=== PATIENT | female | born 1935 | race Caucasian/White ===

== ENCOUNTER 2020-05-26 13:16 | Emergency (ER) | payer MEDICARE, BC ==
[2020-05-26] MEDS ORDERED: Sodium Chloride 0.9% 10 ML Syringe FLUSH PRN (13:20)
[2020-05-26 13:37] VITALS: BP 130/54; PULSE 60
--- NOTE | 2020-05-26 13:43 | EDM.PDOC ---
ED HPI GENERAL MEDICAL PROBLEM - General Chief Complaint: Neuro Symptoms/Deficits Stated Complaint: [facility] Time Seen by Provider: 05/26/20 13:20 Source of Information: Reports: Patient, EMS, Family History Limitations: Reports: No Limitations - History of Present Illness INITIAL COMMENTS - FREE TEXT/NARRATIVE: The patient presents by [facility] for a stroke. The patient was at home with her son and she started having trouble getting her words. This was at 11:30am. EMS was called. She has no other neurologic deficits such as numbness or weakness. She has no headache, fever, chills, cough, congestion, runny nose, chest pain, abdominal pain, nausea, vomiting or diarrhea. She has a history of hypertension and hyperlipidemia. Onset: Sudden Duration: Hour(s): (11:30 symptoms started) Severity: Moderate Improves with: Reports: None Worsens with: Reports: None Associated Symptoms: Reports: No Other Symptoms - Related Data Allergies Allergy/AdvReac Type Severity Reaction Status Date / Time lisinopril AdvReac Cough Verified 05/26/20 13:37 Home Meds: Home Meds Acetaminophen [Tylenol] 650 mg PO Q4H PRN 09/18/15 [History] Albuterol [Proair HFA] 2 puff INH Q4HR PRN 09/18/15 [History] Hydrochlorothiazide 12.5 mg PO DAILY 09/18/15 [History] Ubidecarenone [Co Q-10] 100 mg PO DAILY 09/19/15 [History] amLODIPine [Norvasc] 10 mg PO DAILY 09/19/15 [History] Multivitamins,Therapeutic [Thera] 1 each PO WITHBREAKFAST tablet 09/20/15 [Rx] B2/Vits A,C,E/Lut/Zeaxanth/Min [Icaps] 1 each PO DAILY 05/26/20 [History] Cartilage/Collagen/Bor/Hyalur [Joint Health Tablet] 1 each PO DAILY 05/26/20 [History] Fluticasone Propionate [Flovent] 1 puff IH DAILY 05/26/20 [History] Loratadine [Claritin] 10 mg PO DAILY 05/26/20 [History] Omeprazole 20 mg PO DAILY 05/26/20 [History] Triamcinolone Acetonide [Triamcinolone Acetonide 0.1% Oint] 11 applic TOP BID 05/26/20 [History] atorvaSTATin Calcium [Atorvastatin Calcium] 40 mg PO DAILY 05/26/20 [History] Past Medical History HEENT History: Reports: Impaired Vision Other HEENT History: L cerumen impaction Cardiovascular History: Reports: High Cholesterol, Hypertension Respiratory History: Reports: Asthma Gastrointestinal History: Reports: GERD Musculoskeletal History: Reports: Osteoarthritis Dermatologic History: Reports: Eczema - Past Surgical History HEENT Surgical History: Reports: Cataract Surgery GI Surgical History: Reports: Colonoscopy Social & Family History - Family History Cardiac: Reports: Hypertension, [place] Respiratory: Reports: COPD Musculoskeletal: Reports: Osteoarthritis Endocrine/Metabolic: Reports: Diabetes, type II - Caffeine Use Caffeine Use: Reports: Coffee - Living Situation & Occupation Living situation: Reports: Occupation: Retired ED ROS GENERAL - Review of Systems Review Of Systems: See Below Constitutional: Reports: No Symptoms HEENT: Reports: No Symptoms Respiratory: Reports: No Symptoms Cardiovascular: Reports: No Symptoms Endocrine: Reports: No Symptoms GI/Abdominal: Reports: No Symptoms : Reports: No Symptoms Musculoskeletal: Reports: No Symptoms ED EXAM, NEURO - Physical Exam Exam: See Below Exam Limited By: No Limitations General Appearance: Alert, No Apparent Distress Ears: Normal External Exam Nose: Normal Inspection Head Exam: Atraumatic, Normocephalic Neck: Normal Inspection Respiratory/Chest: No Respiratory Distress, Lungs Clear, Normal Breath Sounds Cardiovascular: Regular Rate, Rhythm, No Edema, No Murmur GI/Abdominal: Soft, Non-Tender, No Organomegaly, No Mass Neurological: Alert, No Motor/Sensory Deficits, Oriented x 3, Other (The patient has trouble getting her words and her sentences do not make sense.) #1 Interpretation EKG Date: 05/26/20 Time: 13:39 Rhythm: NSR Rate (Beats/Min): 59 [employer]: Normal P-Wave: Present QRS: Normal ST-T: Normal QT: Normal Course - Vital Signs Last Recorded V/S: Last Vital Signs Temp 96.9 F 05/26/20 13:32 Pulse 60 05/26/20 13:32 Resp 18 05/26/20 13:32 BP 130/54 L 05/26/20 13:32 Pulse Ox 99 05/26/20 13:32 - Orders/Labs/Meds Orders: Active Orders 24 hr Category Date Time Status Cardiac Monitoring [RC] . DIRECTED Care 05/26/20 13:20 Active EKG Documentation Completion [RC] STAT Care 05/26/20 13:22 Active Peripheral IV Care [RC] . DIRECTED Care 05/26/20 13:22 Active COMPREHENSIVE METABOLIC PN,CMP [CHEM] Stat Lab 05/26/20 13:40 Received CORONAVIRUS COVID-19 RENE [MOLEC] Stat Lab 05/26/20 13:46 Received INR,PT,PROTHROMBIN TIME [COAG] Stat Lab 05/26/20 13:40 Received PTT,PARTIAL THROMBOPLSTIN TIME [COAG] Stat Lab 05/26/20 13:40 Received Sodium Chloride 0.9% [Saline Flush] Med 05/26/20 13:20 Active 10 ml FLUSH ASDIRECTED PRN Peripheral IV Insertion Adult [OM.PC] Stat Oth 05/26/20 13:20 Ordered Medication Orders Sodium Chloride (Saline Flush) 10 ml FLUSH ASDIRECTED PRN PRN Reason: Keep Vein Open Last Admin: 05/26/20 13:56 Dose: 10 ml Documented by: HUBERT Labs: Laboratory Tests 05/26/20 Range/Units 13:40 WBC 7.08 (3.98-10.04) K/mm3 RBC 3.83 L (3.98-5.22) M/mm3 Hgb 11.5 (11.2-15.7) gm/dl Hct 35.7 (34.1-44.9) % MCV 93.2 (79.4-94.8) fl MCH 30.0 (25.6-32.2) pg MCHC 32.2 (32.2-35.5) g/dl RDW Std Deviation 43.3 (36.4-46.3) fL Plt Count 270 D (182-369) K/mm3 MPV 10.1 (9.4-12.3) fl Neut % (Auto) 71.1 (34.0-71.1) % Lymph % (Auto) 21.5 (19.3-51.7) % Hand % (Auto) 6.9 (4.7-12.5) % Eos % (Auto) 0.4 L (0.7-5.8) Baso % (Auto) 0.1 (0.1-1.2) % Neut # (Auto) 5.03 (1.56-6.13) K/mm3 Lymph # (Auto) 1.52 (1.18-3.74) K/mm3 Hand # (Auto) 0.49 H (0.24-0.36) K/mm3 Eos # (Auto) 0.03 L (0.04-0.36) K/mm3 Baso # (Auto) 0.01 (0.01-0.08) K/mm3 Meds: Medications Generic Name Dose Route Start Last Admin Trade Name Freq PRN Reason Stop Dose Admin Sodium Chloride 10 ml 05/26/20 13:20 05/26/20 13:56 Saline Flush FLUSH 10 ml ASDIRECTED PRN Administration Keep Vein Open - Re-Assessments/Exams Free Text/Narrative Re-Assessment/Exam: 05/26/20 13:43 A stroke alert was called. The patient's last time known well was 11:30am. I ordered an IV saline lock, CT of her head, EKG, and labs. Her CT shows large area of decreased attenuation in the right occipital lobe has appearance consistent with acute ischemia. No hemorrhage identified. Stable diffuse chronic white matter ischemic changes when compared with 04/29/2018. 05/26/20 14:06 I called [facility] in [place] and talked with Dr Loya the neurologist application specialist and he did not want me to give her thrombolytics. We are seeing changes on her CT and this makes her at higher risk for a head bleed. I explained this to the patient and her son. Dr Loya did accept the patient. 05/26/20 14:09 Her CBC looks good. Departure - Departure Time of Disposition: 14:10 Disposition: DC/Tfer to Acute Hospital 02 Condition: Serious Clinical Impression: Cerebrovascular accident (CVA) Qualifiers: CVA mechanism: unspecified Qualified Code(s): I63.9 - Cerebral infarction, unspecified - Discharge Information Forms: ED Department Discharge Sepsis Event Note (ED) - Evaluation Sepsis Screening Result: No Definite Risk - Focused Exam Vital Signs: Vital Signs Temp Pulse Resp BP Pulse Ox 05/26/20 13:32 96.9 F 60 18 130/54 L 99 - My Orders Last 24 Hours: My Active Orders 05/26/20 13:20 Cardiac Monitoring [RC] . DIRECTED Sodium Chloride 0.9% [Saline Flush] 10 ml FLUSH ASDIRECTED PRN Peripheral IV Insertion Adult [OM.PC] Stat 05/26/20 13:22 EKG Documentation Completion [RC] STAT Peripheral IV Care [RC] . DIRECTED 05/26/20 13:40 COMPREHENSIVE METABOLIC PN,CMP [CHEM] Stat INR,PT,PROTHROMBIN TIME [COAG] Stat PTT,PARTIAL THROMBOPLSTIN TIME [COAG] Stat 05/26/20 13:46 CORONAVIRUS COVID-19 RENE [MOLEC] Stat - Assessment/Plan Last 24 Hours: My Active Orders 05/26/20 13:20 Cardiac Monitoring [RC] . DIRECTED Sodium Chloride 0.9% [Saline Flush] 10 ml FLUSH ASDIRECTED PRN Peripheral IV Insertion Adult [OM.PC] Stat 05/26/20 13:22 EKG Documentation Completion [RC] STAT Peripheral IV Care [RC] . DIRECTED 05/26/20 13:40 COMPREHENSIVE METABOLIC PN,CMP [CHEM] Stat INR,PT,PROTHROMBIN TIME [COAG] Stat PTT,PARTIAL THROMBOPLSTIN TIME [COAG] Stat 05/26/20 13:46 CORONAVIRUS COVID-19 RENE [MOLEC] Stat
--- NOTE | 2020-05-26 13:53 | CT ---
PROCEDURE INFORMATION: Exam: CT Head Without Contrast Exam date and time: 05/26/2020 1:23 PM Age: 85 years old Clinical indication: Speech disturbance; Patient HX: CVA, cannot talk TECHNIQUE: Imaging protocol: Computed tomography of the head without contrast. Radiation optimization: All CT scans at this facility use at least one of these dose optimization techniques: automated exposure control; mA and/or kV adjustment per patient size (includes targeted exams where dose is matched to clinical indication); or iterative reconstruction. Other technique: STROKE PROTOCOL was implemented. COMPARISON: CT Head wo Cont 04/29/2018 12:50 PM FINDINGS: Brain: Large area of decreased attenuation in the right occipital lobe with effacement of the sulci and gyri. This involves an area measuring approximately 6.4 by by 2.8 cm in AP, transverse, and craniocaudad dimension and extends to the midline. No midline shift. Stable low-density changes in the periventricular white matter of both cerebral consistent with chronic ischemic change. No hemorrhage identified. Mild diffuse parenchymal atrophy. Cerebral ventricles: Stable atrophy related in symmetric ventricular enlargement. Bones/joints: Unremarkable. No acute fracture. Paranasal sinuses: Visualized sinuses are unremarkable. No fluid levels. Mastoid air cells: Visualized mastoid air cells are well aerated. Soft tissues: Unremarkable. Other findings: IMPRESSION: 1. Large area of decreased attenuation in the right occipital lobe has appearance consistent with acute ischemia. No hemorrhage identified. 2. Stable diffuse chronic white matter ischemic changes when compared with 04/29/2018 ASSESSMENT: ASPECTS ([place] Stroke Program Early CT Score) is 10. THIS REPORT CONTAINS FINDINGS THAT MAY BE CRITICAL TO PATIENT CARE. The findings were verbally communicated via telephone conference with ISI COOMBS at 2:37 PM CUSTOMER ADVISOR SPECIALIST on 05/26/2020. The findings were acknowledged and understood. Into Thank you for allowing us to participate in the care of your patient. Dictated and Authenticated by: Mireille Cruz MD 05/26/2020 2:45 PM Central Time ([place] & [place]) [facility]
== END 2020-05-26 14:38 ==
LOC: JD.ED 13:16
DX: I63.9 Cerebral infarction, unspecified (principal); I10 Essential (primary) hypertension; E78.00 Pure hypercholesterolemia, unspecified; J45.909 Unspecified asthma, uncomplicated; K21.9 Gastro-esophageal reflux disease without esophagitis; Z88.8 Allergy status to other drugs, medicaments and biological substances; Z79.899 Other long term (current) drug therapy; Z20.828 Contact with and (suspected) exposure to other viral communicable diseases
CPT/HCPCS: 36415; 70450; 80053; 82962; 85025; 85610; 85730; 93005; 99285; U0002; 93010; 99284

== ENCOUNTER 2020-09-07 07:33 | Emergency (ER) | payer MEDICARE, BC ==
[2020-09-07 07:41] VITALS: BP 144/70; PULSE 96
[2020-09-07] MEDS ORDERED: Sodium Chloride 0.9% 10 ML Syringe FLUSH PRN (08:01)
[2020-09-07] MEDS ORDERED: Sodium Chloride 0.9% 1,000 ML IV SCH (08:15)
--- NOTE | 2020-09-07 08:18 | EDM.PDOC ---
ED HPI GENERAL MEDICAL PROBLEM - General Chief Complaint: General Stated Complaint: [facility] Time Seen by Provider: 09/07/20 07:52 Source of Information: Reports: Patient, EMS History Limitations: Reports: No Limitations - History of Present Illness INITIAL COMMENTS - FREE TEXT/NARRATIVE: The patient presents by [facility] for generalized weakness. She said w hen she went to bed last night she was feeling fine. Early this morning she got up to use the bathroom and was okay but this morning at 6am she was so weak she could not get out of bed. She has a slight cough but no fever, chills, chest pain, shortness of breath, abdominal pain, nausea, vomiting or dysuria. She has a history of a CVA in May. She denies having any deficits from it. She quesada s no heart problems. Onset: Gradual Duration: Hour(s): Severity: Moderate Improves with: Reports: None Worsens with: Reports: None Associated Symptoms: Reports: No Other Symptoms - Related Data Allergies Allergy/AdvReac Type Severity Reaction Status Date / Time lisinopril AdvReac Cough Verified 09/07/20 07:41 Home Meds: Home Meds Acetaminophen [Tylenol] 650 mg PO Q4H PRN 09/18/15 [History] Albuterol [Proair HFA] 2 puff INH Q4HR PRN 09/18/15 [History] Ubidecarenone [Co Q-10] 100 mg PO DAILY 09/19/15 [History] amLODIPine [Norvasc] 10 mg PO DAILY 09/19/15 [History] Multivitamins,Therapeutic [Thera] 1 each PO WITHBREAKFAST tablet 09/20/15 [Rx] B2/Vits A,C,E/Lut/Zeaxanth/Min [Icaps] 1 each PO DAILY 05/26/20 [History] Cartilage/Collagen/Bor/Hyalur [Joint Health Tablet] 1 each PO DAILY 05/26/20 [History] Fluticasone Propionate [Flovent] 1 puff IH DAILY 05/26/20 [History] Loratadine [Claritin] 10 mg PO DAILY 05/26/20 [History] Omeprazole 20 mg PO DAILY 05/26/20 [History] Triamcinolone Acetonide [Triamcinolone Acetonide 0.1% Oint] 11 applic TOP BID 05/26/20 [History] atorvaSTATin Calcium [Atorvastatin Calcium] 40 mg PO DAILY 05/26/20 [History] Apixaban [Eliquis] 5 mg PO BID 09/07/20 [History] Metoprolol Succinate 12.5 mg PO DAILY 09/07/20 [History] Past Medical History HEENT History: Reports: Impaired Vision Other HEENT History: L cerumen impaction Cardiovascular History: Reports: High Cholesterol, Hypertension Respiratory History: Reports: Asthma Gastrointestinal History: Reports: GERD COPY HOLDER History: Reports: Musculoskeletal History: Reports: Osteoarthritis Neurological History: Reports: CVA, Other (See Below) Other Neuro History: Stroke 05/26/2020. Endocrine/Metabolic History: Reports: Vitamin D Deficiency Hematologic History: Reports: Anemia Dermatologic History: Reports: Eczema - Past Surgical History HEENT Surgical History: Reports: Cataract Surgery GI Surgical History: Reports: Colonoscopy Social & Family History - Family History Cardiac: Reports: Hypertension, [place] Respiratory: Reports: COPD Musculoskeletal: Reports: Osteoarthritis Endocrine/Metabolic: Reports: Diabetes, type II - Tobacco Use Tobacco Use Status *Q: Never Tobacco User - Caffeine Use Caffeine Use: Reports: None - Living Situation & Occupation Living situation: Reports: Occupation: Retired ED ROS GENERAL - Review of Systems Review Of Systems: See Below Constitutional: Reports: Malaise, Weakness, Fatigue. Denies: Fever, Chills HEENT: Reports: No Symptoms Respiratory: Reports: No Symptoms Cardiovascular: Reports: No Symptoms Endocrine: Reports: No Symptoms GI/Abdominal: Reports: No Symptoms : Reports: No Symptoms Musculoskeletal: Reports: No Symptoms ED EXAM, GENERAL - Physical Exam Exam: See Below Exam Limited By: No Limitations General Appearance: Alert, No Apparent Distress Ears: Normal External Exam Nose: Normal Inspection Head: Atraumatic, Normocephalic Neck: Normal Inspection Respiratory/Chest: No Respiratory Distress, Lungs Clear, Normal Breath Sounds Cardiovascular: Regular Rate, Rhythm, No Edema, No Murmur GI/Abdominal: Soft, Non-Tender, No Organomegaly, No Mass Extremities: Normal Inspection Neurological: Alert, Oriented, No Motor/Sensory Deficits #1 Interpretation EKG Date: 09/07/20 Time: 07:59 Rhythm: NSR Rate (Beats/Min): 65 [place]: Normal P-Wave: Present QRS: Normal ST-T: Normal QT: Normal Course - Vital Signs Last Recorded V/S: Last Vital Signs Temp 97.4 F 09/07/20 07:38 Pulse 96 09/07/20 07:38 Resp 16 09/07/20 07:38 BP 144/70 H 09/07/20 07:38 Pulse Ox 98 09/07/20 07:38 - Orders/Labs/Meds Orders: Active Orders 24 hr Category Date Time Status Cardiac Monitoring [RC] . DIRECTED Care 09/07/20 08:01 Active EKG Documentation Completion [RC] STAT Care 09/07/20 08:02 Active Peripheral IV Care [RC] . DIRECTED Care 09/07/20 08:02 Active Sodium Chloride 0.9% [Normal Saline] 1,000 ml Med 09/07/20 08:15 Active IV .BOLUS Sodium Chloride 0.9% [Saline Flush] Med 09/07/20 08:01 Active 10 ml FLUSH ASDIRECTED PRN Peripheral IV Insertion Adult [OM.PC] Stat Oth 09/07/20 08:01 Ordered Medication Orders Sodium Chloride (Normal Saline) 1,000 mls @ 1,000 mls/hr IV .BOLUS ZAINAB Last Admin: 09/07/20 08:19 Dose: 1,000 mls/hr Documented by: WALTER Sodium Chloride (Saline Flush) 10 ml FLUSH ASDIRECTED PRN PRN Reason: Keep Vein Open Last Admin: 09/07/20 08:19 Dose: 10 ml Documented by: WALTER Labs: Laboratory Tests 09/07/20 09/07/20 09/07/20 Range/Units 07:50 07:50 08:08 WBC 7.90 (3.98-10.04) K/mm3 RBC 3.60 L (3.98-5.22) M/mm3 Hgb 10.2 L (11.2-15.7) gm/dl Hct 32.8 L (34.1-44.9) % MCV 91.1 (79.4-94.8) fl MCH 28.3 (25.6-32.2) pg MCHC 31.1 L (32.2-35.5) g/dl RDW Std Deviation 46.0 (36.4-46.3) fL Plt Count 406 H D (182-369) K/mm3 MPV 10.3 (9.4-12.3) fl Neut % (Auto) 75.6 H (34.0-71.1) % Lymph % (Auto) 15.4 L (19.3-51.7) % [place] % (Auto) 7.1 (4.7-12.5) % Eos % (Auto) 1.0 (0.7-5.8) Baso % (Auto) 0.6 (0.1-1.2) % Neut # (Auto) 5.97 (1.56-6.13) K/mm3 Lymph # (Auto) 1.22 (1.18-3.74) K/mm3 [place] # (Auto) 0.56 H (0.24-0.36) K/mm3 Eos # (Auto) 0.08 (0.04-0.36) K/mm3 Baso # (Auto) 0.05 (0.01-0.08) K/mm3 Sodium 143 (136-145) mEq/L Potassium 3.8 (3.5-5.1) mEq/L Chloride 105 (98-107) mEq/L Carbon Dioxide 25 (21-32) mEq/L Anion Gap 16.8 H (5-15) BUN 13 (7-18) mg/dL Creatinine 0.7 (0.55-1.02) mg/dL Est Cr Clr Drug Dosing 51.66 mL/min Estimated GFR (MDRD) > 60 (>60) mL/min BUN/Creatinine Ratio 18.6 H (14-18) Glucose 105 (83-115) mg/dL Lactic Acid (0.4-2.0) mmol/L Calcium 9.1 (8.5-10.1) mg/dL Magnesium 2.2 (1.8-2.4) mg/dl Total Bilirubin 0.3 (0.2-1.0) mg/dL AST 14 L (15-37) U/L ALT 17 (14-59) U/L Alkaline Phosphatase 103 (46-116) U/L Troponin I < 0.017 (0.00-0.056) ng/mL C-Reactive Protein 2.6 H* (<1.0) mg/dL Total Protein 8.1 (6.4-8.2) g/dl Albumin 2.7 L (3.4-5.0) g/dl Globulin 5.4 gm/dL Albumin/Globulin Ratio 0.5 L (1-2) Urine Color Yellow (Yellow) Urine Appearance Clear (Clear) Urine pH 7.0 (5.0-8.0) Ur Specific [place] 1.025 (1.005-1.030) Urine Protein Negative (Negative) Urine Glucose (UA) Negative (Negative) Urine Ketones Negative (Negative) Urine Occult Blood Negative (Negative) Urine Nitrite Negative (Negative) Urine Bilirubin Negative (Negative) Urine Urobilinogen 0.2 (0.2-1.0) Ur Leukocyte Esterase Negative (Negative) Urine RBC 0-5 (0-5) /hpf Urine WBC 0-5 (0-5) /hpf Ur Squamous Epith Cells 0-5 (0-5) /hpf Urine Bacteria Few (FEW) /hpf Urine Mucus Few (FEW) /hpf SARS-CoV-2 RNA (RENE) (NEGATIVE) 09/07/20 09/07/20 Range/Units 08:08 08:23 WBC (3.98-10.04) K/mm3 RBC (3.98-5.22) M/mm3 Hgb (11.2-15.7) gm/dl Hct (34.1-44.9) % MCV (79.4-94.8) fl MCH (25.6-32.2) pg MCHC (32.2-35.5) g/dl RDW Std Deviation (36.4-46.3) fL Plt Count (182-369) K/mm3 MPV (9.4-12.3) fl Neut % (Auto) (34.0-71.1) % Lymph % (Auto) (19.3-51.7) % [place] % (Auto) (4.7-12.5) % Eos % (Auto) (0.7-5.8) Baso % (Auto) (0.1-1.2) % Neut # (Auto) (1.56-6.13) K/mm3 Lymph # (Auto) (1.18-3.74) K/mm3 [place] # (Auto) (0.24-0.36) K/mm3 Eos # (Auto) (0.04-0.36) K/mm3 Baso # (Auto) (0.01-0.08) K/mm3 Sodium (136-145) mEq/L Potassium (3.5-5.1) mEq/L Chloride (98-107) mEq/L Carbon Dioxide (21-32) mEq/L Anion Gap (5-15) BUN (7-18) mg/dL Creatinine (0.55-1.02) mg/dL Est Cr Clr Drug Dosing mL/min Estimated GFR (MDRD) (>60) mL/min BUN/Creatinine Ratio (14-18) Glucose (83-115) mg/dL Lactic Acid 0.8 (0.4-2.0) mmol/L Calcium (8.5-10.1) mg/dL Magnesium (1.8-2.4) mg/dl Total Bilirubin (0.2-1.0) mg/dL AST (15-37) U/L ALT (14-59) U/L Alkaline Phosphatase (46-116) U/L Troponin I (0.00-0.056) ng/mL C-Reactive Protein (<1.0) mg/dL Total Protein (6.4-8.2) g/dl Albumin (3.4-5.0) g/dl Globulin gm/dL Albumin/Globulin Ratio (1-2) Urine Color (Yellow) Urine Appearance (Clear) Urine pH (5.0-8.0) Ur Specific [place] (1.005-1.030) Urine Protein (Negative) Urine Glucose (UA) (Negative) Urine Ketones (Negative) Urine Occult Blood (Negative) Urine Nitrite (Negative) Urine Bilirubin (Negative) Urine Urobilinogen (0.2-1.0) Ur Leukocyte Esterase (Negative) Urine RBC (0-5) /hpf Urine WBC (0-5) /hpf Ur Squamous Epith Cells (0-5) /hpf Urine Bacteria (FEW) /hpf Urine Mucus (FEW) /hpf SARS-CoV-2 RNA (RENE) Negative (NEGATIVE) Meds: Medications Generic Name Dose Route Start Last Admin Trade Name Freq PRN Reason Stop Dose Admin Sodium Chloride 1,000 mls @ 1,000 mls/hr 09/07/20 08:15 09/07/20 08:19 Normal Saline IV 1,000 mls/hr .BOLUS ZAINAB Administration Sodium Chloride 10 ml 09/07/20 08:01 09/07/20 08:19 Saline Flush FLUSH 10 ml ASDIRECTED PRN Administration Keep Vein Open - Re-Assessments/Exams Free Text/Narrative Re-Assessment/Exam: 09/07/20 08:18 I ordered an IV NS 1L bolus, EKG, CT of her head, labs and UA. 09/07/20 09:[address] of her head shows senescent change. Old infarct within the right occipital lobe which is an interval change from previous studies. No acute abnormality is identified on noncontrast head CT study. Her CXR looks good. Her WBC was normal. Her Hgb was low at 10.2. Her anion gap was elevated at 16.8. Her lactic acid was normal. Her troponin is negative. Her CRP was elevated at 2.6. Her UA shows no UTI. Her COVID 19 is negative. She feels much better and got up to urinate. I feel she was dehydrated. She says she vázquez not drink enough water. I will encourage her to drink and discharge home. Departure - Departure Time of Disposition: 09:50 Disposition: Home, Self-Care 01 Condition: Good Clinical Impression: Dehydration, Generalized weakness - Discharge Information *PRESCRIPTION DRUG MONITORING PROGRAM REVIEWED*: Not Applicable *COPY OF PRESCRIPTION DRUG MONITORING REPORT IN PATIENT JOSE: Not Applicable Referrals: Daniel Ley MD [Primary Care Provider] - Forms: ED Department Discharge Additional Instructions: Take your medication as prescribed. Drink plenty of water daily. Try to drink eight 8 ounce glasses per day or until your urine is pale yellow. Follow up with your doctor this week. Please return if you are worse. Sepsis Event Note (ED) - Evaluation Sepsis Screening Result: No Definite Risk - Focused Exam Vital Signs: Vital Signs Temp Pulse Resp BP Pulse Ox 09/07/20 07:38 97.4 F 96 16 144/70 H 98 - My Orders Last 24 Hours: My Active Orders 09/07/20 08:01 Cardiac Monitoring [RC] . DIRECTED Sodium Chloride 0.9% [Saline Flush] 10 ml FLUSH ASDIRECTED PRN Peripheral IV Insertion Adult [OM.PC] Stat 09/07/20 08:02 EKG Documentation Completion [RC] STAT Peripheral IV Care [RC] . DIRECTED 09/07/20 08:15 Sodium Chloride 0.9% [Normal Saline] 1,000 ml IV .BOLUS - Assessment/Plan Last 24 Hours: My Active Orders 09/07/20 08:01 Cardiac Monitoring [RC] . DIRECTED Sodium Chloride 0.9% [Saline Flush] 10 ml FLUSH ASDIRECTED PRN Peripheral IV Insertion Adult [OM.PC] Stat 09/07/20 08:02 EKG Documentation Completion [RC] STAT Peripheral IV Care [RC] . DIRECTED 09/07/20 08:15 Sodium Chloride 0.9% [Normal Saline] 1,000 ml IV .BOLUS
--- NOTE | 2020-09-07 08:41 | CR ---
Chest: Portable view of the chest was obtained. Comparison: Prior chest x-ray of 04/29/18 and 08/24/15. Heart size is slightly enlarged. Tortuous thoracic aorta is noted. Lung markings are slightly increased which appear stable. No acute parenchymal change is seen. Right shoulder prosthesis is noted. Stable degenerative change is seen within the left shoulder. Impression: 1. Findings as noted above. 2. Nothing acute is appreciated on portable chest x-ray. Diagnostic code #2
--- NOTE | 2020-09-07 08:47 | CT ---
Head CT Technique: Multiple axial sections through the brain were obtained. Intravenous contrast was not utilized. Reconstructed coronal and sagittal images were obtained. Comparison: Prior brain MRI of 06/30/[address] study of 04/29/18. Findings: Ventricles along with basal cisterns and sulci over the convexities are mildly prominent. Diminished density is noted within the periventricular and subcortical white matter which is felt compatible with small vessel ischemic demyelination change. There is an old infarct within the posterior right occipital lobe which represents an interval change from prior exams. No additional abnormality is appreciated. No intracranial hemorrhage is seen. No midline shift or mass-effect is appreciated. Bone window settings were reviewed. Visualized paranasal sinuses and mastoid sinuses show nothing acute. No acute calvarial abnormality is appreciated. Impression: 1. Senescent change as noted above. 2. Old infarct within the right occipital lobe which is an interval change from previous studies. 3. No acute abnormality is identified on noncontrast head CT study. Diagnostic code #2
== END 2020-09-07 10:37 | disposition home or self-care (01) ==
LOC: JD.ED 07:33
DX: E86.0 Dehydration (principal); I10 Essential (primary) hypertension; J45.909 Unspecified asthma, uncomplicated; Z79.01 Long term (current) use of anticoagulants; Z79.899 Other long term (current) drug therapy; Z20.822 Contact with and (suspected) exposure to COVID-19; Z86.73 Personal history of transient ischemic attack (TIA), and cerebral infarction without residual deficits; Z88.8 Allergy status to other drugs, medicaments and biological substances; R41.0 Disorientation, unspecified; R53.1 Weakness
CPT/HCPCS: 36415; 70450; 71045; 80053; 81001; 83605; 83735; 84484; 85025; 86140; 93005; 99285; J7030; U0002; 93010; 99283

== ENCOUNTER 2020-12-10 15:28 | Emergency (ER) | payer MEDICARE, BC ==
[2020-12-10] MEDS ORDERED: Sodium Chloride 0.9% 10 ML Syringe FLUSH PRN (15:42)
--- NOTE | 2020-12-10 16:09 | EDM.PDOC ---
ED HPI GENERAL MEDICAL PROBLEM - General Chief Complaint: Neuro Symptoms/Deficits Stated Complaint: [facility] Time Seen by Provider: 12/10/20 15:37 Source of Information: Reports: Patient, EMS, Family History Limitations: Reports: No Limitations - History of Present Illness INITIAL COMMENTS - FREE TEXT/NARRATIVE: The patient presents by [facility] for left sided weakness. She was last time known well at 3:10pm mountain time. She went to eat lunch with her daughter. She came back to [facility], assisted living in town here. Staff noted she could not move the left side of her body. She has left sided facial droop, left arm and leg weakness. She said she did have a headache when this started but none now. She has no fever, chills, cough, congestion, chest pain, shortness of breath, abdominal pain, nausea or vomiting. 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 She has no deficits from that stroke. She is on eliquis for intermittent atrial fibrillation. Onset: Sudden Duration: Minutes: (3:10pm mountain time) Location: Reports: Head Quality: Reports: Ache Severity: Mild (gone now) Improves with: Reports: None Worsens with: Reports: None Associated Symptoms: Reports: Headaches. Denies: Chest Pain, Cough, Fever/Chills, Nausea/Vomiting, Shortness of Breath - Related Data Allergies Allergy/AdvReac Type Severity Reaction Status Date / Time lisinopril AdvReac Cough Verified 12/10/20 15:36 Home Meds: Home Meds Acetaminophen [Tylenol] 350 mg PO Q4H PRN 12/10/20 [History] Apixaban [Eliquis] 5 mg PO BID 12/10/20 [History] Cyanocobalamin (Vitamin B-12) [B-12] 1,000 mcg PO DAILY 12/10/20 [History] Donepezil HCl [Aricept] 10 mg PO QPM 12/10/20 [History] Glucosamine/MSM/Chondroit/C/Mn [Flexi Joint Tablet] 1 each PO DAILY 12/10/20 [History] Metoprolol Succinate 12.5 mg PO DAILY 12/10/20 [History] Multivit with Iron,Minerals [Complete Senior] 1 each PO QPM 12/10/20 [History] Ubidecarenone [Coenzyme Q10] 100 mg PO DAILY 12/10/20 [History] Vit A/C/E/Zinc/Selenium/Copper [Vision Formula Tablet] 1 each PO QPM 12/10/20 [History] amLODIPine Besylate [Amlodipine Besylate] 10 mg PO DAILY 12/10/20 [History] atorvaSTATin [Lipitor] 40 mg PO DAILY 12/10/20 [History] Past Medical History HEENT History: Reports: Impaired Vision Other HEENT History: L cerumen impaction Cardiovascular History: Reports: High Cholesterol, Hypertension Respiratory History: Reports: Asthma Gastrointestinal History: Reports: GERD 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 Psychiatric History: Reports: None Endocrine/Metabolic History: Reports: Vitamin D Deficiency Hematologic History: Reports: Anemia Immunologic History: Reports: None Oncologic (Cancer) History: Reports: None Dermatologic History: Reports: Eczema - Infectious Disease History Infectious Disease History: Reports: Chicken Pox, Measles, Mumps, Rubella - Past Surgical History HEENT Surgical History: Reports: Cataract Surgery GI Surgical History: Reports: Colonoscopy Social & Family History - Family History Family Medical History: No Pertinent Family History Cardiac: Reports: Hypertension, [place] Respiratory: Reports: COPD Musculoskeletal: Reports: Osteoarthritis Endocrine/Metabolic: Reports: Diabetes, type II - Tobacco Use Tobacco Use Status *Q: Never Tobacco User Second Hand Smoke Exposure: No - Caffeine Use Caffeine Use: Reports: Coffee - Recreational Drug Use Recreational Drug Use: No - Living Situation & Occupation Living situation: Reports: Occupation: Retired ED ROS GENERAL - Review of Systems Review Of Systems: See Below Constitutional: Reports: No Symptoms HEENT: Reports: No Symptoms Respiratory: Reports: No Symptoms Cardiovascular: Reports: No Symptoms Endocrine: Reports: No Symptoms GI/Abdominal: Reports: No Symptoms : Reports: No Symptoms Musculoskeletal: Reports: No Symptoms Neurological: Reports: Headache, Weakness (Left face, arm and leg) ED EXAM, NEURO - Physical Exam Exam: See Below Exam Limited By: No Limitations General Appearance: Alert, No Apparent Distress Ears: Normal External Exam Nose: Normal Inspection Head Exam: Atraumatic, Normocephalic Neck: Normal Inspection Respiratory/Chest: No Respiratory Distress, Lungs Clear, Normal Breath Sounds Cardiovascular: Regular Rate, Rhythm, No Edema, No Murmur GI/Abdominal: Soft, Non-Tender, No Organomegaly, No Mass Neurological: Alert, Other (severe weakness to the left arm and leg and left sided facial droop) #1 Interpretation EKG Date: 12/10/20 Time: 15:38 Rhythm: NSR Rate (Beats/Min): 77 [place]: Normal P-Wave: Present QRS: Normal ST-T: Normal QT: Normal [place]/PQ Interval: 1st degree HB Course - Vital Signs Last Recorded V/S: Last Vital Signs Temp 97.5 F 12/10/20 15:40 Pulse 57 L 12/10/20 15:40 Resp 18 12/10/20 15:40 BP 123/67 12/10/20 15:40 Pulse Ox 97 12/10/20 15:40 - Orders/Labs/Meds Orders: Active Orders 24 hr Category Date Time Status Cardiac Monitoring [RC] . DIRECTED Care 12/10/20 15:42 Active EKG Documentation Completion [RC] STAT Care 12/10/20 15:42 Active Peripheral IV Care [RC] . DIRECTED Care 12/10/20 15:42 Active Head wo Cont [CT] Stat Exams 12/10/20 15:43 Taken CORONAVIRUS COVID-19 RENE [MOLEC] Stat Lab 12/10/20 16:01 Ordered INR,PT,PROTHROMBIN TIME [COAG] Stat Lab 12/10/20 15:41 Received PTT,PARTIAL THROMBOPLSTIN TIME [COAG] Stat Lab 12/10/20 15:41 Received Sodium Chloride 0.9% [Saline Flush] Med 12/10/20 15:42 Active 10 ml FLUSH ASDIRECTED PRN Peripheral IV Insertion Adult [OM.PC] Stat Oth 12/10/20 15:42 Ordered Medication Orders Sodium Chloride (Sodium Chloride 0.9% 10 Ml Syringe) 10 ml FLUSH ASDIRECTED PRN PRN Reason: Keep Vein Open Last Admin: 12/10/20 15:48 Dose: 10 ml Documented by: PILLO Labs: Laboratory Tests 12/10/20 12/10/20 12/10/20 Range/Units 15:37 15:41 15:41 WBC 7.99 (3.98-10.04) K/mm3 RBC 3.88 L (3.98-5.22) M/mm3 Hgb 11.3 (11.2-15.7) gm/dl Hct 35.1 (34.1-44.9) % MCV 90.5 (79.4-94.8) fl MCH 29.1 (25.6-32.2) pg MCHC 32.2 (32.2-35.5) g/dl RDW Std Deviation 45.7 (36.4-46.3) fL Plt Count 409 H (182-369) K/mm3 MPV 10.3 (9.4-12.3) fl Neut % (Auto) 49.7 (34.0-71.1) % Lymph % (Auto) 41.1 (19.3-51.7) % Gray % (Auto) 7.5 (4.7-12.5) % Eos % (Auto) 1.1 (0.7-5.8) Baso % (Auto) 0.3 (0.1-1.2) % Neut # (Auto) 3.98 (1.56-6.13) K/mm3 Lymph # (Auto) 3.28 (1.18-3.74) K/mm3 Gray # (Auto) 0.60 H (0.24-0.36) K/mm3 Eos # (Auto) 0.09 (0.04-0.36) K/mm3 Baso # (Auto) 0.02 (0.01-0.08) K/mm3 Sodium 141 (136-145) mEq/L Potassium 3.5 (3.5-5.1) mEq/L Chloride 103 (98-107) mEq/L Carbon Dioxide 22 (21-32) mEq/L Anion Gap 19.5 H (5-15) BUN 19 H (7-18) mg/dL Creatinine 1.0 (0.55-1.02) mg/dL Est Cr Clr Drug Dosing 36.16 mL/min Estimated GFR (MDRD) 53 (>60) mL/min BUN/Creatinine Ratio 19.0 H (14-18) Glucose 141 H (70-99) mg/dL POC Glucose 132 H (70-99) mg/dL Calcium 8.7 (8.5-10.1) mg/dL Total Bilirubin 0.2 (0.2-1.0) mg/dL AST 15 (15-37) U/L ALT 20 (14-59) U/L Alkaline Phosphatase 111 (46-116) U/L Troponin I < 0.017 (0.00-0.056) ng/mL Total Protein 8.4 H (6.4-8.2) g/dl Albumin 3.0 L (3.4-5.0) g/dl Globulin 5.4 gm/dL Albumin/Globulin Ratio 0.6 L (1-2) Meds: Medications Generic Name Dose Route Start Last Admin Trade Name Freq PRN Reason Stop Dose Admin Sodium Chloride 10 ml 12/10/20 15:42 12/10/20 15:48 Sodium Chloride 0.9% 10 Ml Syringe FLUSH 10 ml ASDIRECTED PRN Administration Keep Vein Open - Re-Assessments/Exams Free Text/Narrative Re-Assessment/Exam: 12/10/20 16:13 A stroke alert was called. The patient went right to the CT scanner. I went with her. She could not move her left arm and left leg. Her last time known well was 3:10pm mountain time. I ordered a CT of her head, IV saline lock, and labs. The CT of her head shows old right occipital infarct. No acute intracranial process. I called [facility] in [place] and talked with the neurologist Dr Bragg and he accepted the patient. I also talked with the Dr Jewell in the ER. He also accepted her. She is on eliquis so she cannot get TPA. Her CBC and CMP look good. Her troponin is negative. She will be going by helicopter. Departure - Departure Time of Disposition: 16:30 Disposition: DC/Tfer to Acute Hospital 02 Condition: Serious Clinical Impression: CVA (cerebral vascular accident) Qualifiers: CVA mechanism: unspecified Qualified Code(s): I63.9 - Cerebral infarction, unspecified - Discharge Information Forms: ED Department Discharge Sepsis Event Note (ED) - Evaluation Sepsis Screening Result: No Definite Risk - Focused Exam Vital Signs: Vital Signs Temp Pulse Resp BP Pulse Ox 12/10/20 15:40 97.5 F 57 L 18 123/67 97 - My Orders Last 24 Hours: My Active Orders 12/10/20 15:41 INR,PT,PROTHROMBIN TIME [COAG] Stat PTT,PARTIAL THROMBOPLSTIN TIME [COAG] Stat 12/10/20 15:42 Cardiac Monitoring [RC] . DIRECTED EKG Documentation Completion [RC] STAT Peripheral IV Care [RC] . DIRECTED Sodium Chloride 0.9% [Saline Flush] 10 ml FLUSH ASDIRECTED PRN Peripheral IV Insertion Adult [OM.PC] Stat 12/10/20 15:43 Head wo Cont [CT] Stat 12/10/20 16:01 CORONAVIRUS COVID-19 RENE [MOLEC] Stat - Assessment/Plan Last 24 Hours: My Active Orders 12/10/20 15:41 INR,PT,PROTHROMBIN TIME [COAG] Stat PTT,PARTIAL THROMBOPLSTIN TIME [COAG] Stat 12/10/20 15:42 Cardiac Monitoring [RC] . DIRECTED EKG Documentation Completion [RC] STAT Peripheral IV Care [RC] . DIRECTED Sodium Chloride 0.9% [Saline Flush] 10 ml FLUSH ASDIRECTED PRN Peripheral IV Insertion Adult [OM.PC] Stat 12/10/20 15:43 Head wo Cont [CT] Stat 12/10/20 16:01 CORONAVIRUS COVID-19 RENE [MOLEC] Stat
[2020-12-10 19:01] VITALS: BP 131/51; PULSE 65
--- NOTE | 2020-12-11 18:04 | CT ---
Head CT Technique: Multiple axial sections through the brain were obtained. Intravenous contrast was not utilized. Comparison: Prior head CT study of 09/07/20 is available. Ventricles along with basal cisterns and sulci over the convexities are mildly prominent for the patient's age. Old infarct is noted within the right occipital region. Diffuse diminished density is noted within the periventricular and cortical white matter. There is some atrophy seen within the cerebellum on both sides which is chronic. No other abnormal parenchymal densities are seen. No evidence of intracranial hemorrhage. No midline shift or mass-effect is seen. Bone window settings were reviewed which show no acute calvarial abnormality. Visualized mastoid sinuses and paranasal sinuses show nothing acute. Impression: 1. Senescent change as noted above. 2. Nothing acute is appreciated on noncontrast head CT exam. Diagnostic code #2 I agree with preliminary report from Tani, finalized on 12/10/20, 4:51 PM CDT, code 1
== END 2020-12-10 17:20 ==
LOC: JD.ED 15:28
DX: I63.9 Cerebral infarction, unspecified (principal); E78.00 Pure hypercholesterolemia, unspecified; I10 Essential (primary) hypertension; J45.909 Unspecified asthma, uncomplicated; Z79.01 Long term (current) use of anticoagulants; Z86.73 Personal history of transient ischemic attack (TIA), and cerebral infarction without residual deficits; Z88.8 Allergy status to other drugs, medicaments and biological substances; Z79.899 Other long term (current) drug therapy; Z20.822 Contact with and (suspected) exposure to COVID-19
CPT/HCPCS: 36415; 70450; 80053; 82947; 84484; 85025; 85610; 85730; 93005; 99285; U0002; 93010; 99284

== ENCOUNTER 2021-07-22 04:42 | Emergency (ER) | payer MEDICARE, BC ==
--- NOTE | 2021-07-22 04:55 | EDM.PDOC ---
<Serge Nair - Last Filed: 07/22/21 06:59> ED HPI GENERAL MEDICAL PROBLEM - General Chief Complaint: Neuro Symptoms/Deficits Stated Complaint: [facility] Time Seen by Provider: 07/22/21 04:42 Source of Information: Reports: Patient, EMS History Limitations: Reports: No Limitations - History of Present Illness INITIAL COMMENTS - FREE TEXT/NARRATIVE: A stroke alert was called for this patient. Mrs. Agustin is a very pleasant 86-year-old woman who is now brought to the ED from [facility] assisted living by EMS due to increased weakness on the left. 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 She was reportedly up to the bathroom numerous times tonight, requiring assistance, with her last known normal at 01:00. She was then found to be more weak on the left than usual at 04:00, nearly falling off the toilet. The patient denies having any pain, including having no headache. No recent nausea. She reportedly has a chronic cough. From the patient's perspective, she states that she ordinarily requires so much assistance, she was unaware that she had increased weakness on the left. The patient has a history of paroxysmal atrial fibrillation, on Eliquis. At triage, the patient's initial blood pressure was found to be modestly elevat ed at 158/61, otherwise, she was hemodynamically stable, afebrile, saturating 95% on room air. An Accu-Chek was 103. She appears to be comfortable, in no acute distress. Prior to 04:00, the patient denies having a recent fever, chills, sore throat, ear pain, nasal or sinus congestion, cough, dyspnea, chest pain, palpitations, nausea, vomiting, constipation, diarrhea, abdominal pain, urinary symptoms, recent weight gain or weight loss, recent bloody bowel movements or black bowel movements, recent joint aches, headaches, or rashes. I reviewed the PMHx/PSHx/SocHx, which was reviewed with the patient by the RN. The patient's PCP is Dr. Daniel Ley. She has received 2 Moderna COVID vaccinations, although no influenza vaccination this season. - Related Data Allergies Allergy/AdvReac Type Severity Reaction Status Date / Time lisinopril AdvReac Cough Verified 07/22/21 05:28 Home Meds: Home Meds Acetaminophen [Tylenol] 350 mg PO Q4H PRN 12/10/20 [History] Apixaban [Eliquis] 5 mg PO BID 12/10/20 [History] Cyanocobalamin (Vitamin B-12) [B-12] 1,000 mcg PO DAILY 12/10/20 [History] Donepezil HCl [Aricept] 10 mg PO QPM 12/10/20 [History] Multivit with Iron,Minerals [Complete Senior] 1 each PO DAILY 12/10/20 [History] Ubidecarenone [Coenzyme Q10] 100 mg PO DAILY 12/10/20 [History] amLODIPine Besylate [Amlodipine Besylate] 10 mg PO DAILY 12/10/20 [History] atorvaSTATin [Lipitor] 40 mg PO BEDTIME 12/10/20 [History] Acetaminophen [Tylenol] 650 mg PO BID 07/22/21 [History] Cranberry Fruit [Cranberry] 450 mg PO BID 07/22/21 [History] Docusate Sodium/Sennosides [Senna Plus] 1 tab PO BID PRN 07/22/21 [History] levETIRAcetam [Levetiracetam] 750 mg PO BID 07/22/21 [History] Past Medical History HEENT History: Reports: Impaired Vision Cardiovascular History: Reports: Afib (paroxysmal), High Cholesterol, Hypertension Respiratory History: Reports: Asthma Gastrointestinal History: Reports: GERD Musculoskeletal History: Reports: Osteoarthritis Neurological History: Reports: CVA (x 3? Left hemiparesis) Endocrine/Metabolic History: Reports: Vitamin D Deficiency Dermatologic History: Reports: Eczema - Infectious Disease History Infectious Disease History: Reports: Chicken Pox, Measles, Mumps, Rubella - Past Surgical History HEENT Surgical History: Reports: Cataract Surgery GI Surgical History: Reports: Colonoscopy Social & Family History - Caffeine Use Caffeine Use: Reports: Coffee - Living Situation & Occupation Living situation: Reports: , Assisted Living ([facility]) Occupation: Retired ED ROS GENERAL - Review of Systems Review Of Systems: Comprehensive ROS is negative, except as noted in HPI. ED EXAM, NEURO - Physical Exam Exam: See Below Exam Limited By: No Limitations General Appearance: Alert, WD/WN, No Apparent Distress Eye Exam: Bilateral Eye: EOMI, Normal Inspection, PERRL Ears: Normal External Exam, Hearing Grossly Normal Nose: Normal Inspection Throat/Mouth: Normal Inspection, Normal Lips, Normal Voice, No Airway Compromise Head Exam: Atraumatic, Normocephalic Neck: Normal Inspection, Full Range of Motion Respiratory/Chest: No Respiratory Distress, Lungs Clear, Normal Breath Sounds, No Accessory Muscle Use Cardiovascular: Normal Peripheral Pulses, Regular Rate, Rhythm, No Edema, No Gallop, No JVD, No Murmur, No Rub GI/Abdominal: Normal Bowel Sounds, Soft, Non-Tender, No Organomegaly, No Distention, No Abnormal Bruit, No Mass Neurological: Alert, CN II-XII Intact, Oriented x 3, Other (Weakness to flexion and extension, both proximally and distally, to the left upper and left lower extremity. Left-sided sensation is normal.) Back Exam: Normal Inspection, Full Range of Motion, NT Extremities: Normal Inspection, Normal Range of Motion, No Pedal Edema, Normal Capillary Refill Psychiatric: Normal Affect Skin Exam: Warm, Dry, Intact, Normal Color, No Rash #1 Interpretation EKG Date: 07/22/21 Time: 04:49 Rhythm: Other (Sinus bradycardia) Rate (Beats/Min): 59 [place]: Normal (Borderline LAD) P-Wave: Present (Borderline 1st degree AVB) QRS: Other (Late transition) ST-T: Normal QT: Normal Comparison: No Change (12/10/2020) Course - Re-Assessments/Exams Free Text/Narrative Re-Assessment/Exam: 07/22/21 04:52 An Accu-Chek was 103 at triage. I ordered a work-up that includes numerous blood tests, a urinalysis by quick catheter, a swab for the SARS-CoV-2 virus, a CT of the head without contrast, and an ECG. 07/22/21 05:47 The patient's CBC is unremarkable. Her BMP is unremarkable. Her magnesium level is within normal limits at 2.1. Her troponin is undetectabley low. Her urinalysis is unremarkable. Her swab for the SARS-Cov-2 virus is negative. 07/22/21 06:[address] of the head without contrast are still pending. Case discussed with Dr. Stephen, and care of the patient turned over to him at this time, for change of shift. Departure - Departure Disposition: Home, Self-Care 01 Clinical Impression: Generalized weakness, Myoclonic jerking - Discharge Information *PRESCRIPTION DRUG MONITORING PROGRAM REVIEWED*: Not Applicable *COPY OF PRESCRIPTION DRUG MONITORING REPORT IN PATIENT JOSE: Not Applicable Referrals: PCP,None [Primary Care Provider] - Forms: ED Department Discharge Additional Instructions: Keep taking your medications as prescribed. Follow up with your provider within a week. You may need further studies of you neck and head. Please return if you are worse. <Dave Stephen - Last Filed: 07/22/21 09:54> Course - Vital Signs Last Recorded V/S: Last Vital Signs Temp 97.1 F 07/22/21 04:43 Pulse 75 07/22/21 09:30 Resp 20 07/22/21 09:30 BP 144/103 H 07/22/21 09:30 Pulse Ox 100 07/22/21 09:30 - Orders/Labs/Meds Orders: Active Orders 24 hr Category Date Time Status Urinary Catheter Assessment [RC] ASDIRECTED Care 07/22/21 05:17 Active Urinary Catheter Insertion [Insert Urinary Catheter] [ Care 07/22/21 05:30 Ordered OM.PC] Q24H Cervical Spine wo Cont [CT] Stat Exams 07/22/21 09:00 Taken Head wo Cont [CT] Stat Exams 07/22/21 04:46 Taken Labs: Laboratory Tests 07/22/21 07/22/21 07/22/21 Range/Units 04:47 04:49 04:49 WBC 8.10 (3.98-10.04) K/mm3 RBC 3.89 L (3.98-5.22) M/mm3 Hgb 12.2 (11.2-15.7) gm/dl Hct 37.7 (34.1-44.9) % MCV 96.9 H D (79.4-94.8) fl MCH 31.4 (25.6-32.2) pg MCHC 32.4 (32.2-35.5) g/dl RDW Std Deviation 45.5 (36.4-46.3) fL Plt Count 291 D (182-369) K/mm3 MPV 10.1 (9.4-12.3) fl Neut % (Auto) 66.8 (34.0-71.1) % Lymph % (Auto) 23.3 (19.3-51.7) % [place] % (Auto) 8.6 (4.7-12.5) % Eos % (Auto) 0.9 (0.7-5.8) Baso % (Auto) 0.2 (0.1-1.2) % Neut # (Auto) 5.40 (1.56-6.13) K/mm3 Lymph # (Auto) 1.89 (1.18-3.74) K/mm3 [place] # (Auto) 0.70 H (0.24-0.36) K/mm3 Eos # (Auto) 0.07 (0.04-0.36) K/mm3 Baso # (Auto) 0.02 (0.01-0.08) K/mm3 Sodium 146 H (136-145) mEq/L Potassium 3.6 (3.5-5.1) mEq/L Chloride 109 H (98-107) mEq/L Carbon Dioxide 28 (21-32) mEq/L Anion Gap 12.6 (5-15) BUN 15 (7-18) mg/dL Creatinine 0.7 (0.55-1.02) mg/dL Est Cr Clr Drug Dosing 48.60 mL/min Estimated GFR (MDRD) > 60 (>60) mL/min BUN/Creatinine Ratio 21.4 H (14-18) Glucose 106 H (70-99) mg/dL POC Glucose 103 H (70-99) mg/dL Calcium 8.9 (8.5-10.1) mg/dL Magnesium 2.1 (1.8-2.4) mg/dL Troponin I < 0.017 (0.00-0.056) ng/mL Urine Color (Yellow) Urine Appearance (Clear) Urine pH (5.0-8.0) Ur Specific [place] (1.005-1.030) Urine Protein (Negative) Urine Glucose (UA) (Negative) Urine Ketones (Negative) Urine Occult Blood (Negative) Urine Nitrite (Negative) Urine Bilirubin (Negative) Urine Urobilinogen (0.2-1.0) Ur Leukocyte Esterase (Negative) Urine RBC (0-5) /hpf Urine WBC (0-5) /hpf Ur Epithelial Cells (0-5) /hpf Urine Bacteria (FEW) /hpf Urine Mucus (FEW) /hpf SARS-CoV-2 RNA (RENE) (NEGATIVE) 07/22/21 07/22/21 Range/Units 04:54 05:15 WBC (3.98-10.04) K/mm3 RBC (3.98-5.22) M/mm3 Hgb (11.2-15.7) gm/dl Hct (34.1-44.9) % MCV (79.4-94.8) fl MCH (25.6-32.2) pg MCHC (32.2-35.5) g/dl RDW Std Deviation (36.4-46.3) fL Plt Count (182-369) K/mm3 MPV (9.4-12.3) fl Neut % (Auto) (34.0-71.1) % Lymph % (Auto) (19.3-51.7) % [place] % (Auto) (4.7-12.5) % Eos % (Auto) (0.7-5.8) Baso % (Auto) (0.1-1.2) % Neut # (Auto) (1.56-6.13) K/mm3 Lymph # (Auto) (1.18-3.74) K/mm3 [place] # (Auto) (0.24-0.36) K/mm3 Eos # (Auto) (0.04-0.36) K/mm3 Baso # (Auto) (0.01-0.08) K/mm3 Sodium (136-145) mEq/L Potassium (3.5-5.1) mEq/L Chloride (98-107) mEq/L Carbon Dioxide (21-32) mEq/L Anion Gap (5-15) BUN (7-18) mg/dL Creatinine (0.55-1.02) mg/dL Est Cr Clr Drug Dosing mL/min Estimated GFR (MDRD) (>60) mL/min BUN/Creatinine Ratio (14-18) Glucose (70-99) mg/dL POC Glucose (70-99) mg/dL Calcium (8.5-10.1) mg/dL Magnesium (1.8-2.4) mg/dL Troponin I (0.00-0.056) ng/mL Urine Color Light yellow (Yellow) Urine Appearance Clear (Clear) Urine pH 5.5 (5.0-8.0) Ur Specific [place] 1.025 (1.005-1.030) Urine Protein Negative (Negative) Urine Glucose (UA) Negative (Negative) Urine Ketones Negative (Negative) Urine Occult Blood Negative (Negative) Urine Nitrite Negative (Negative) Urine Bilirubin Negative (Negative) Urine Urobilinogen 0.2 (0.2-1.0) Ur Leukocyte Esterase Negative (Negative) Urine RBC 0-5 (0-5) /hpf Urine WBC 0-5 (0-5) /hpf Ur Epithelial Cells Not seen (0-5) /hpf Urine Bacteria Rare (FEW) /hpf Urine Mucus Not seen (FEW) /hpf SARS-CoV-2 RNA (RENE) Negative (NEGATIVE) Meds: Medications Discontinued Medications Generic Name Dose Route Start Last Admin Trade Name Freq PRN Reason Stop Dose Admin Levetiracetam 1,000 mg/ Sodium 110 mls @ 400 mls/hr 07/22/21 08:13 07/22/21 08:25 Chloride IV 07/22/21 08:27 400 mls/hr ONETIME ONE Administration Levetiracetam 1,000 mg/ Sodium 110 mls @ 400 mls/hr 07/22/21 08:13 07/22/21 08:19 Chloride IV 07/22/21 08:27 Not Given ONETIME ONE Levetiracetam Confirm 07/22/21 08:14 07/22/21 08:17 Levetiracetam 500 Mg/5 Ml Sdv Administered 07/22/21 08:15 Not Given Dose 500 mg .ROUTE .STK-MED ONE Lorazepam Confirm 07/22/21 08:10 07/22/21 08:16 Lorazepam 2 Mg/Ml Sdv Administered 07/22/21 08:11 Not Given Dose 2 mg .ROUTE .STK-MED ONE Lorazepam 0.5 mg 07/22/21 08:11 07/22/21 08:16 Lorazepam 2 Mg/Ml Sdv IVPUSH 07/22/21 08:12 0.5 mg ONETIME ONE Administration Lorazepam 0.5 mg 07/22/21 08:27 07/22/21 08:20 Lorazepam 2 Mg/Ml Sdv IVPUSH 07/22/21 08:28 0.5 mg ONETIME ONE Administration - Re-Assessments/Exams Free Text/Narrative Re-Assessment/Exam: 07/22/21 08:[address] Nair. My nurse came to get me the patient was possibly having some seizure activity. 07/22/21 09:46 When I went in the room she was shaking in her chest, abdomen, arms and legs. She would shake very 1/2 second to a second. It did not look like a seizure but some myoclonic jerking. I ordered an ativan 0.5mg IV and then 0.5mg and I gave her keppra 1 gram IV. The shaking stopped. I called [facility] in [place] and talked with the neurologist contact agent Dr De Dios. He did not think this was a seizure but the myoclonic jerking. He did recommend a CT of her neck and eventually an MRI of her neck and brain. I did order the CT. The CT shows multilevel cervical spondylosis without CT evidence for high-grade central spinal canal stenosis. Multilevel neural foraminal stenosis greatest at C3-C4. No fracture or destructive osseous lesion. I feel it is safe to sent her back to assisted living. Departure - Departure Time of Disposition: 09:50 Condition: Good Sepsis Event Note (ED) - Focused Exam Vital Signs: Vital Signs Temp Pulse Resp BP Pulse Ox 07/22/21 09:30 75 20 144/103 H 100 07/22/21 08:45 65 18 150/56 H 98 07/22/21 08:30 68 21 H 152/62 H 98 07/22/21 08:15 66 22 H 153/72 H 100 07/22/21 08:10 18 88 L 07/22/21 08:00 58 L 16 165/65 H 94 L 07/22/21 07:00 66 16 155/60 H 95 07/22/21 04:43 97.1 F 65 14 158/61 H 95 - My Orders Last 24 Hours: My Active Orders 07/22/21 09:00 Cervical Spine wo Cont [CT] Stat - Assessment/Plan Last 24 Hours: My Active Orders 07/22/21 09:00 Cervical Spine wo Cont [CT] Stat
[2021-07-22] MEDS ORDERED: LORazepam 2 MG/ML SDV ONE (08:10)
[2021-07-22] MEDS ORDERED: LORazepam 2 MG/ML SDV IVPUSH ONE ×2 (08:11→08:27)
[2021-07-22] MEDS ORDERED: levETIRAcetam 1,000 MG in Sodium Chloride 0.9% 100 ML IV ONE ×4 (08:13)
[2021-07-22] MEDS ORDERED: levETIRAcetam 500 MG/5 ML SDV ONE (08:14)
[2021-07-22 10:01] VITALS: BP 157/52; PULSE 77
--- NOTE | 2021-07-24 08:55 | CT ---
EXAM: CT HEAD W/O LOCATION: [facility] Niko Niko DATE/TIME: 07/22/2021 4:48 AM INDICATION: Increase on chronic left sided weakness. pt has hx of prior stroke in may 2020 COMPARISON: None. TECHNIQUE: Routine CT Head without IV contrast. Multiplanar reformats. Dose reduction techniques were used. FINDINGS: INTRACRANIAL CONTENTS: No intracranial hemorrhage, extraaxial collection, or mass effect. Chronic right occipital lobe infarct. Age-indeterminate right caudate lacunar type infarction. Age-indeterminate bilateral cerebellar lacunar type infarctions. Moderate to severe presumed chronic small vessel ischemic changes. Moderate generalized volume loss. No hydrocephalus. Ex vacuo dilatation of the occipital horn of the right lateral ventricle. VISUALIZED ORBITS/SINUSES/MASTOIDS: Prior bilateral cataract surgery. Visualized portions of the orbits are otherwise unremarkable. No paranasal sinus mucosal disease. No middle ear or mastoid effusion. BONES/SOFT TISSUES: No acute abnormality. IMPRESSION: 1. Age-indeterminate right caudate and bilateral cerebellar lacunar type infarctions. If the patient is experiencing an acute, focal or ongoing neurologic deficit, an MRI may be indicated. 2. Chronic right occipital lobe infarct. 3. Brain atrophy and presumed chronic microvascular ischemic changes as above. SIGNED BY: Porfirio Mcconnell MD 07/22/2021 6:45 AM VANI
--- NOTE | 2021-07-24 08:55 | CT ---
EXAM: CT C-SPINE SPINE WO CON LOCATION: [facility] DATE/TIME: 07/22/2021 9:06 AM INDICATION: Myoclonic jerking of the whole body. Increased left-sided weakness. COMPARISON: None TECHNIQUE: Routine CT Cervical Spine without IV contrast. Multiplanar reformats. Dose reduction techniques were used. FINDINGS: VERTEBRA: Mildly straightened cervical lordosis, a nonspecific finding that may be positional. Minor degenerative type grade 1 anterolisthesis at C4-C5 and C7-T1. Preserved vertebral body heights. No fracture or destructive osseous lesion. CANAL/FORAMINA: Diffuse cervical spondylosis with multilevel loss of disc height and endplate/uncovertebral spurring greatest at C5-C6 and C6-C7. Multilevel cervical facet arthropathy. Minimal spinal canal stenosis at C3-C4. No CT evidence for high-grade central spinal canal stenosis. Moderate to severe neural foraminal stenosis at C3-C4, left greater than right. Mild to moderate left neural foraminal stenosis at multiple levels from C4 through C7. PARASPINAL: Prevertebral soft tissues within normal limits for thickness. Atherosclerotic calcifications at the carotid bifurcations. Included lung apices are clear. IMPRESSION: 1. Multilevel cervical spondylosis without CT evidence for high-grade central spinal canal stenosis. 2. Multilevel neural foraminal stenosis greatest at C3-C4 as above. 3. No fracture or destructive osseous lesion. SIGNED BY: Jesús Washington MD 07/22/2021 10:34 AM VANI
== END 2021-07-22 10:30 | disposition home or self-care (01) ==
LOC: JD.ED 04:42
DX: R53.1 Weakness (principal); G25.3 Myoclonus; I48.0 Paroxysmal atrial fibrillation; E78.00 Pure hypercholesterolemia, unspecified; I10 Essential (primary) hypertension; K21.9 Gastro-esophageal reflux disease without esophagitis; Z88.8 Allergy status to other drugs, medicaments and biological substances; Z79.01 Long term (current) use of anticoagulants; Z79.899 Other long term (current) drug therapy; Z20.822 Contact with and (suspected) exposure to COVID-19
CPT/HCPCS: 36415; 70450; 72125; 80048; 81001; 82947; 83735; 84484; 85025; 93005; 96374; 96375; 99285; J1953; J2060; U0002

== ENCOUNTER 2021-11-19 11:42 | Emergency (ER) | payer MEDICARE, BC ==
[2021-11-19 14:10] VITALS: BP 140/86; PULSE 95
== END 2021-11-19 13:00 ==
LOC: JD.ED 11:42 → SUPCPDRO 11:42 → JD.ED 13:00
DX: I63.9 Cerebral infarction, unspecified (principal); I67.82 Cerebral ischemia; R29.710 NIHSS score 10; I48.0 Paroxysmal atrial fibrillation; E78.00 Pure hypercholesterolemia, unspecified; I10 Essential (primary) hypertension; M19.90 Unspecified osteoarthritis, unspecified site; Z86.73 Personal history of transient ischemic attack (TIA), and cerebral infarction without residual deficits; Z79.01 Long term (current) use of anticoagulants; Z88.8 Allergy status to other drugs, medicaments and biological substances
CPT/HCPCS: 36415; 70450; 70450-26; 71045; 71045-26; 80053; 84484; 85025; 85610; 93005; 99285-25

== ENCOUNTER 2022-02-21 12:57 | Emergency (ER) | payer MEDICARE, BC ==
[2022-02-21] MEDS ORDERED: LORazepam 2 MG/ML SDV IVPUSH ONE ×2 (13:20→13:49)
[2022-02-21] MEDS ORDERED: levETIRAcetam 500 MG in Sodium Chloride 0.9% 100 ML IV ONE (13:21)
[2022-02-21] MEDS ORDERED: Sodium Chloride 0.9% 10 ML Syringe FLUSH PRN (13:21)
[2022-02-21] MEDS ORDERED: levETIRAcetam 500 MG/5 ML SDV ONE (13:29)
[2022-02-21] MEDS ORDERED: LORazepam 2 MG/ML SDV ONE (13:29)
[2022-02-21] MEDS ORDERED: Sodium Chloride 0.9% 100 ML ONE (13:29)
[2022-02-21] MEDS ORDERED: Sodium Chloride 0.45% 1,000 ML IV SCH (13:30)
[2022-02-21 14:22] LABS: ESTIMATED GFR 72 mL/min (>60)
[2022-02-21 18:32] VITALS: BP 124/75; PULSE 76
== END 2022-02-21 18:29 ==
LOC: SUPCPDRO 12:57 → JD.ED 12:57
DX: R56.9 Unspecified convulsions (principal); I10 Essential (primary) hypertension; Z88.6 Allergy status to analgesic agent; Z88.8 Allergy status to other drugs, medicaments and biological substances; Z79.899 Other long term (current) drug therapy; Z79.01 Long term (current) use of anticoagulants; Z79.82 Long term (current) use of aspirin
CPT/HCPCS: 36415; 70450; 80053; 80177; 81003; 83735; 85025; 96361; 96374; 96375; 99285; J1953; J2060; J3490; 99284